=== PATIENT | female | born 1960 | race Caucasian/White ===

== ENCOUNTER 2018-02-07 20:35 | Emergency (ER) | payer MEDICAID, OTHER ==
[2018-02-07 20:35] VITALS: BMI 34.0
[2018-02-07 20:46] VITALS: BP 124/85; TEMP 99.2; O2SAT 96
[2018-02-07 20:59] VITALS: PULSE 90; RESP 18
--- NOTE | 2018-02-07 21:26 | C.PDOC ---
History Of Present Illness 57 y/o female,w/PMhx of psychosis, presents to the ER complaining of upper back pain which has been present for the past few days. Patient was evaluated by a psychiatrist at [facility] today and she was discharged. Then, she was evaluated at [facility]. She was found to have UTI and was evaluated by 2 Crisis workers. She was discharged with prescriptions for UTI. Denies having fever, chills, CP, SOB, neck stiffness, weakness, injury or numbness. Time Seen by Provider: 02/07/18 20:48 Chief Complaint (Nursing): Back Pain History Per: Patient History/Exam Limitations: no limitations Onset/Duration Of Symptoms: Days Current Symptoms Are (Timing): Still Present Severity: Moderate Past Medical History Reviewed: Historical Data, Nursing Documentation, Vital Signs Vital Signs: Last Vital Signs Temp 99.2 F 02/07/18 20:58 Pulse 90 02/07/18 20:58 Resp 18 02/07/18 20:58 BP 124/85 02/07/18 20:58 Pulse Ox 96 02/07/18 20:58 - Medical History PMH: Anxiety, Depression Denies: Diabetes, Hepatitis, HIV, HTN, Seizures, Sexually Transmitted Disease Surgical History: No Surg Hx - [facility] Procedures OTHER GROUP THERAPY (09/16/12) PSYCHIAT DRUG THERAP NEC (09/16/12) Family History: States: No Known Family Hx - Social History Hx Alcohol Use: No Hx Substance Use: No Review Of Systems Except As Marked, All Systems Reviewed And Found Negative. Constitutional: Negative for: Fever, Chills Cardiovascular: Negative for: Chest Pain Respiratory: Negative for: Shortness of Breath Musculoskeletal: Positive for: Back Pain Physical Exam - Physical Exam Appears: Non-toxic, No Acute Distress Skin: Normal Color, Warm, Dry Head: Atraumatic, Normacephalic Eye(s): bilateral: Normal Inspection Nose: Normal Oral Mucosa: Moist Neck: Supple Chest: Symmetrical Cardiovascular: Rhythm Regular Respiratory: Normal Breath Sounds, No Rales, No Rhonchi, No Wheezing Back: Normal Inspection, No CVA Tenderness, No Vertebral Tenderness Neurological/Psych: Oriented x3, Other (shaking arms purposefully, patient stopped shaking arms when I instructed her) ED Course And Treatment O2 Sat by Pulse Oximetry: 96 (RA) Pulse Ox Interpretation: Normal Medical Decision Making Medical Decision Makin:00 Records reviewed from [facility] visit. At the time, she had labs done. She was found to have UTI and given prescriptions for UTI. Patient stated that she did not have home. CW Alanis and I called the gospel worker who evaluated the patient at [facility] and learned the patient had been evaluated at [facility] earlier today, was discharged home after being evaluated by a psychiatrist. Patient then went to [facility] ED c/o auditory hallucinationg w/voices commanding that she kill herself but then repeatedly denied AH, SI and HI to two different CWs who evaluated her. The CW at [facility] stated that the patient was exhibiting bizarre behavior (purposefully shaking her whole body and stopping when she was asked to and when she ate 2 meals there) and stating she had nowhere to go. The Crisis workers found that she had a home address and that she is followed by [facility] CW states malingering was strongly suspected. They discharged the patient with a voucher so she could go home. Patient has been informed that she can take Tylenol or Motrin for pain at home. She has been instructed to fill the antibiotic for UTI that was provided . Patient has been discharged home. Disposition Counseled Patient/Family Regarding: Diagnosis, Need For Followup - Disposition Referrals: [facility] [Outside] [facility] [Outside] Disposition: HOME/ ROUTINE Disposition Time: 21:24 Condition: STABLE Additional Instructions: GERARD PALM, thank you for letting us take care of you today. Your provider was Alysia Cazares MD and you were treated for BACK PAINS. The emergency medical care you received today was directed at your acute symptoms. GET THE PRESCRIPTION FOR ANTIBIOTIC YOU WERE GIVEN TODAY AT [facility] and take as directed. It may take several days for your symptoms to resolve. Return to the Emergency Department if your symptoms worsen, do not improve, or if you have any other problems. Please contact your doctor or call one of the physicians/clinics you have been referred to that are listed on the Patient Visit Information form that is included in your discharge packet. Bring any paperwork you were given at discharge with you along with any medications you are taking to your follow up visit. Our treatment cannot replace ongoing medical care by a primary care provider outside of the emergency department. Thank you for allowing the [facility] team to be part of your care today. Instructions: Urinary Tract Infection, Adult (DC), Muscle and Bone Pain (DC) Forms: [facility] (Khmer), General Discharge Instructions - POA Present On Arrival: None - Clinical Impression Clinical Impression: UTI (urinary tract infection), Musculoskeletal pain - Scribe Statement The provider has reviewed the documentation as recorded by the Scribe Olya Milner Provider Attestation: All medical record entries made by the Scribe were at my direction and personally dictated by me. I have reviewed the chart and agree that the record accurately reflects my personal performance of the history, physical exam, medical decision making, and the department course for this patient. I have also personally directed, reviewed, and agree with the discharge instructions and disposition.
== END 2018-02-07 21:43 | disposition home or self-care (01) ==
LOC: C.ER 20:35
DX: N39.0 Urinary tract infection, site not specified (principal); M79.18 Myalgia, other site